=== PATIENT | male | born 2000 | race African-American/Black ===

== ENCOUNTER 2022-04-05 16:50 | Emergency (ER) | payer OTHER ==
[2022-04-05 17:00] VITALS: BP 160/72
--- NOTE | 2022-04-05 17:16 | ED Physician Documentation ---
History of Present Illness - Stated complaint Stated Complaint: LT FT NUMBNESS - Chief complaint Chief Complaint: Ext Problem - History obtained from History obtained from: Patient - History of Present Illness Timing: How many days ago (2) - Additonal information Additional information: 22-year-old male presents to the emergency department complaining of numbness to the lateral aspect of the left foot. Ongoing for the past 2 days. 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 Nothing makes it better or worse. No fevers. No chills. No history of diabetes. Not on any medications at home. No trauma. Review of Systems Constitutional: denies: Fever, Chills Respiratory: denies: Cough GI: denies: Vomiting, Diarrhea PD PAST MEDICAL HISTORY - Past Medical History Past Medical History: No - Past Surgical History Past Surgical History: No - Allergies Allergies/Adverse Reactions: Allergies Allergy/AdvReac Type Severity Reaction Status Date / Time No Known Drug Allergies Allergy Verified 04/05/22 16:57 - Living Situation Living Situation: reports: With family Living Arrangement: reports: At home - Social History Does the pt smoke?: No Does the pt drink ETOH?: No Does the pt have substance abuse?: No PD ED PE NORMAL - Vitals Vital signs reviewed: Yes - General General: Alert and oriented X 3 - Derm Derm: Warm and dry - Extremities Extremities: Other (Mild decrease sensation on the lateral aspect of the left foot. Otherwise normal exam of the foot and ankle. Brisk cap refill. Normal pulses.) - Neuro Neuro: Alert and oriented X 3 Results - Vitals Vitals: Vital Signs - 24 hr 04/05/22 16:54 Temperature 36.3 C L Heart Rate 75 Respiratory 16 Rate Blood Pressure 160/72 H O2 Saturation 100 Oxygen O2 Source Room air PD MEDICAL DECISION MAKING - ED course Complexity details: considered differential, d/w patient ED course: 22-year-old male with what appears to be a slight decrease sensation on the lateral aspect of the left foot. Likely compression of the sural nerve. Likely secondary to his tight fitting boots. Recommend that he wear thinner socks and see if he can obtain a different pair of boots that are slightly looser. Patient will follow up with the [employer] base for further care. Patient counseled regarding signs and symptoms for which I believe and urgent re-evaluation would be necessary. Patient with good understanding of and agreement to plan and is comfortable going home at this time This document was made in part using voice recognition software. While efforts are made to proofread this document, sound alike and grammatical errors may occur. Departure - Departure Disposition: 01 Home, Self Care Clinical Impression: Paresthesia Condition: Good Instructions: ED Paraesthesias Follow-Up: your,doctor in 1 week [Other] Comments: The numbness on the lateral aspect of your foot is likely due to your shoes. Please change to thinner socks if possible. Also you should have boots that are not so tight fitting. That should resolve on its own over the next few weeks. Discharge Date/Time: 04/05/22 17:19
== END 2022-04-05 17:19 | disposition home or self-care (01) ==
LOC: ED 16:50
DX: R20.2 Paresthesia of skin (principal)
CPT/HCPCS: 99281; 99282

== ENCOUNTER 2022-07-12 14:02 | Outpatient (CLI) | payer OTHER | END 2022-07-12 14:03 | disposition EMS.NT | LOC: EMS 14:02 | DX: R06.02 Shortness of breath (principal); R51.9 Headache, unspecified; R53.83 Other fatigue; R53.81 Other malaise ==

== ENCOUNTER 2023-12-15 08:33 | Emergency (ER) | payer OTHER ==
[2023-12-15 08:58] VITALS: O2SAT 100
--- NOTE | 2023-12-15 09:27 | XRAY Report ---
PROCEDURE: Hand 3+V RT INDICATIONS: Trauma TECHNIQUE: 3 views of the hand(s) acquired. COMPARISON: None. FINDINGS: Bones: No comminuted distal shaft fracture of fifth metacarpal with palmar angulation. No suspicious bony lesions. Soft tissues: No suspicious soft tissue calcifications or masses. IMPRESSION: Boxer's fracture, fifth metacarpal, comminuted with angulation. Reviewed by: Hermilo Garcia MD on 12/15/2023 9:26 AM PDT Approved by: Hermilo Garcia MD on 12/15/2023 9:26 AM PDT Station ID: [id number]
--- NOTE | 2023-12-15 09:46 | ED Physician Documentation ---
PD HPI UPPER EXT INJURY - Stated complaint Stated Complaint: RT HAND SWOLLEN - Chief complaint Chief Complaint: Trauma Ext - History obtained from History obtained from: Patient - History of Present Illness Location: Right, Hand Type of injury: Blunt / blow (he punched object last night with pain to right hand 5th MC area.) Where injury occurred: Home Timing - onset: Last night Associated symptoms: Swelling. No: Weakness, Numbness Similar symptoms before: Has not had sx before Review of Systems Skin: denies: Abrasion (s), Laceration (s) Neurologic: denies: Focal weakness, Numbness PD PAST MEDICAL HISTORY - Past Medical History Past Medical History: No - Past Surgical History Past Surgical History: No - Present Medications Home Medications: Ambulatory Orders Medication Instructions Recorded Confirmed No Known Home Medications 12/15/23 12/15/23 - Allergies Allergies/Adverse Reactions: Allergies Allergy/AdvReac Type Severity Reaction Status Date / Time No Known Drug Allergies Allergy Verified 12/15/23 08:44 - Social History Does the pt smoke?: Yes Smoking Status: Current every day smoker Does the pt drink ETOH?: No Does the pt have substance abuse?: No - Immunizations Immunizations are current?: Yes - POLST Patient has POLST: No PD ED PE NORMAL - Vitals Vital signs reviewed: Yes - General General: Alert and oriented X 3, No acute distress, Well developed/nourished - Derm Derm: Normal color, Warm and dry - Extremities Extremities: Other (right hand with tenderness, swelling, and early ecchymosis dorsal prox 5th MC mainly. Some palmar swelling too. Wrist not tender. ) - Neuro Neuro: No motor deficit (guarded ROM due to hand pain, but able to initiate flex and ext of little and ring fingers. ), No sensory deficit Results - Vitals Vitals: Oxygen O2 Source Room air - Rads (name of study) right hand Relevant Findings:: EMP independent interpretation of test (boxers fracture distal 5th MC shaft, with mild angulation and no displacement. ) Procedures - Splint (location) - Minor right ulnar gutter velcro splint Splint applied by: Tech Type of splint: Prefab velcro wrist (ulnar gutter) Other: Patient tolerated well, No complications, Neurovascular intact PD Medical Decision Making - ED course Complexity details: considered differential (punched wall with pain and swelling c/w boxers fracture adn xray confirms it with mild angulation and not displaced. SPlinted and follow up ortho. ), d/w patient Departure - Departure Disposition: 01 Home, Self Care Clinical Impression: Bianka fracture Qualifiers: Encounter type: initial encounter Fracture type: closed Qualified Code(s): S62.339A - Displaced fracture of neck of unspecified metacarpal bone, initial encounter for closed fracture Condition: Stable Record reviewed to determine appropriate education?: Yes Instructions: ED Fx Boxer Follow-Up: [facility] [Provider Group] [facility] [Provider Group] Comments: You do have a fracture of the fifth metacarpal bone in the hand. Use the Velcro splint regularly for the next 4 weeks likely. You can have it off briefly for showering etc. It is good to ensure the fracture heals along the proper trajectory. Follow-up with your primary care or orthopedics in about 1 to 1-1/2 weeks, call today for an appointment. Limited use initially with the right hand and progressed to light activity as tolerated. Ice elevate and rested often today. I would suggest some ibuprofen 3 times daily for the next several days to week and add Tylenol every 4-6 hours if needed for pains. Forms: PCP List, Activity restrictions Discharge Date/Time: 12/15/23 10:30
[2023-12-15] MEDS: IBUPROFEN 600 MG TABLET PO STA (10:01)
[2023-12-15] MEDS: ACETAMINOPHEN 500 MG TABLET PO STA (10:01)
[2023-12-15 10:39] VITALS: BP 137/76
== END 2023-12-15 10:30 | disposition home or self-care (01) ==
LOC: ED 08:33
DX: S62.336A Displaced fracture of neck of fifth metacarpal bone, right hand, initial encounter for closed fracture (principal); W22.8XXA Striking against or struck by other objects, initial encounter; F17.200 Nicotine dependence, unspecified, uncomplicated
CPT/HCPCS: 73130; 99283; A9270